=== PATIENT | female | born 1995 | race Caucasian/White ===

== ENCOUNTER 2020-03-11 13:57 | Emergency (ER) | payer OTHER ==
--- NOTE | 2020-03-11 14:48 | ER Document Report ---
ED Medical Screen (RME) - General Chief Complaint: Vag Bleeding, +preg <12wks Stated Complaint: VAGINAL BLEEDING Time Seen by Provider: 03/11/20 14:36 - HPI Notes: 03/11/20 14:47 25-year-old female to the emergency department with complaints of vaginal bleeding that began this morning. She states it started off a little bit heavier and now is gone to spotting. Has a little bit of intermittent lower abdominal cramping with this. She states that she is about 6 weeks . This is her first . She is not seen COMPANY ACCOUNTANT. She is not had an ultrasound. She has been taking prenatals. Denies any nausea or vomiting. Denies any fevers chills. Denies any chest pain, shortness of breath, lightheadedness, urinary complaints. I performed a brief medical screening exam on the patient determined that the patient needs further evaluation and management by main side provider. I have placed initial orders to help expedite care. - Related Data Allergies/Adverse Reactions: No Known Allergies Allergy (Unverified 03/11/20 14:46) Home Medications: vitamins Past Medical History - Social History Chew tobacco use (# tins/day): No Frequency of alcohol use: None Drug Abuse: None Physical Exam - Vital signs Vitals: Temp Pulse Resp BP Pulse Ox 99.0 F 83 18 129/73 H 99 03/11/20 14:05 03/11/20 14:05 03/11/20 14:05 03/11/20 14:05 03/11/20 14:05 Course - Vital Signs Vital signs: Temp Pulse Resp BP Pulse Ox 99.0 F 83 18 129/73 H 99 03/11/20 14:05 03/11/20 14:05 03/11/20 14:05 03/11/20 14:05 03/11/20 14:05
[2020-03-11 15:29] LABS: ABSOLUTE EOSINOPHILS # (AUTO) 0.1 10^3/uL (0.0-0.6); ABSOLUTE LYMPHOCYTES (AUTO) 1.6 10^3/uL (0.5-4.7); ABSOLUTE MONOCYTES (AUTO) 0.5 10^3/uL (0.1-1.4); ABSOLUTE NEUT (AUTO) 5.5 10^3/uL (1.7-8.2); BASOPHILS % (AUTO) 0.4 % (0-2); EOSINOPHILS % (AUTO) 1.4 % (0-6); HEMATOCRIT 39.5 % (36.0-47.0); HEMOGLOBIN 13.5 g/dL (12.0-15.5); LYMPHOCYTES % (AUTO) 20.8 % (13-45); MEAN CORPUSCULAR HEMOGLOBIN 28.1 pg (27.0-33.4); MEAN CORPUSCULAR HGB CONC 34.2 g/dL (32.0-36.0); MEAN CORPUSCULAR VOLUME 82 fl (80-97); MONOCYTES % (AUTO) 6.9 % (3-13); PLATELET COUNT 306 10^3/uL (150-450); RED CELL DISTRIBUTION WIDTH 13.5 % (11.5-14.0); SEGMENTED NEUTROPHILS % (AUTO) 70.5 % (42-78); TOTAL CELLS COUNTED % (AUTO) 100 %; WHITE BLOOD COUNT 7.7 10^3/uL (4.0-10.5)
[2020-03-11 15:54] LABS: ALBUMIN 4.2 g/dL (3.5-5.0); ALKALINE PHOSPHATASE 106 U/L (38-126); ANION GAP 9 (5-19); ASPARTATE AMINO TRANSFERASE 27 U/L (14-36); BILIRUBIN,DIRECT 0.3 mg/dL (0.0-0.4); BILIRUBIN,TOTAL 0.6 mg/dL (0.2-1.3); BLOOD UREA NITROGEN 11 mg/dL (7-20); CALCIUM 9.8 mg/dL (8.4-10.2); CARBON DIOXIDE 27 mmol/L (22-30); CHLORIDE 103 mmol/L (98-107); GLUCOSE 97 mg/dL (75-110); POTASSIUM 4.4 mmol/L (3.6-5.0)
--- NOTE | 2020-03-11 17:04 | RADIOLOGY REPORT (SQ) ---
EXAM DESCRIPTION: U/S OB TRANSVAG W/DOPPLER IMAGES COMPLETED DATE/TIME: 03/11/2020 4:38 pm REASON FOR STUDY: 6 weeks preg, vag bleeding, eval ectopic COMPARISON: None. TECHNIQUE: Transvaginal static and realtime grayscale images acquired of the pelvis. Additional margarito cted spectral and color Doppler images recorded. All images stored on PACs. CLINICAL AGE: 7 weeks, 1 day [id number],323 LIMITATIONS: None. FINDINGS: UTERUS: No masses. No anomalies. GESTATIONAL SAC: Normal shape. YOLK SAC: Yes. POLE: None present. RIGHT ADNEXA: Normal ovary with normal vascular flow. No adnexal free fluid. No adnexal masses. LEFT ADNEXA: Normal ovary with normal vascular flow. No adnexal free fluid. No adnexal masses. Incidental note is made of a corpus luteum cyst. FREE FLUID: None. OTHER: No other significant finding. IMPRESSION: POSSIBLE EARLY INTRAUTERINE . BHCG LEVEL APPROPRIATE FOR ENDOMETRIAL FINDINGS. CONSIDER F/U BHCG AND/OR ULTRASOUND FOR VERIFICATION AND TO EXCLUDE ECTOPIC . Trimester of : First trimester - 0 to 13 weeks. TECHNICAL DOCUMENTATION: JOB ID: [id number] 2010 [employer]- All Rights Reserved Reading location - IP/workstation name: [email or web address]
[2020-03-11 18:03] LABS: APPEARANCE,URINE CLEAR; BILIRUBIN,URINE NEGATIVE (NEGATIVE); COLOR,URINE YELLOW; GLUCOSE, URINE NEGATIVE (NEGATIVE); KETONES,URINE NEGATIVE (NEGATIVE); LEUKOCYTE ESTERASE,URINE NEGATIVE (NEGATIVE); NITRITE,URINE NEGATIVE (NEGATIVE); PROTEIN,URINE NEGATIVE (NEGATIVE); URINE SPECIFIC GRAVITY 1.013; UROBILINOGEN,URINE NEGATIVE mg/dL (<2.0)
--- NOTE | 2020-03-11 18:25 | ER Document Report ---
ED General - General Chief Complaint: Vag Bleeding, +preg <12wks Stated Complaint: VAGINAL BLEEDING Time Seen by Provider: 03/11/20 14:36 Primary Care Provider: ALYSE BALTAZAR MD [ACTIVE PROVISIONAL STAFF] - 03/13/20 - [facility] Notes: 25-year-old female, G1, P0 to the emergency department with complaints of vaginal bleeding that began today. She states it was heavy in the morning and now it slowed up to mild spotting. She states that she is about 6 weeks . She thinks her last menstrual period was in January. She admits some slight cramping. Denies any urinary complaints. Denies any vaginal discharge. She states she has not had a ultrasound to confirm location he had with this . She has been taking prenatals. She denies any nausea vomiting, diarrhea. - Related Data Allergies/Adverse Reactions: No Known Allergies Allergy (Unverified 03/11/20 14:46) Home Medications: vitamins Past Medical History - General Information source: Patient - Social History Smoking Status: Never Smoker Chew tobacco use (# tins/day): No Frequency of alcohol use: None Drug Abuse: None Family History: Reviewed & Not Pertinent Review of Systems - Review of Systems Constitutional: denies: Chills, Fever EENT: No symptoms reported Cardiovascular: denies: Chest pain, Palpitations, Dyspnea, Syncope Respiratory: denies: Cough, Short of breath Gastrointestinal: denies: Diarrhea, Nausea, Vomiting Genitourinary: denies: Burning, Frequency, Flank pain Female Genitourinary: See HPI, , Vaginal bleeding Musculoskeletal: No symptoms reported Skin: No symptoms reported Hematologic/Lymphatic: No symptoms reported Neurological/Psychological: No symptoms reported -: Yes All other systems reviewed and negative Physical Exam - Vital signs Vitals: Temp Pulse Resp BP Pulse Ox 99.0 F 83 18 129/73 H 99 03/11/20 14:05 03/11/20 14:05 03/11/20 14:05 03/11/20 14:05 03/11/20 14:05 Interpretation: Normal - General General appearance: Appears well, Alert - HEENT Head: Normocephalic, Atraumatic Eyes: Normal Pupils: PERRL - Respiratory Respiratory status: No respiratory distress Chest status: Nontender Breath sounds: Normal Chest palpation: Normal - Cardiovascular Rhythm: Regular Heart sounds: Normal auscultation Murmur: No - Abdominal Inspection: Normal Distension: No distension Bowel sounds: Normal Tenderness: Nontender. No: McBurney's point, Núñez's sign, Guarding, Rebound Organomegaly: No organomegaly - Back Back: Normal, Nontender. No: CVA tenderness - Neurological Neuro grossly intact: Yes Cognition: Normal Orientation: AAOx4 [place] Coma Scale Eye Opening: Spontaneous Peggy Coma Scale Verbal: Oriented Peggy Coma Scale Motor: Obeys Commands [place] Coma Scale Total: 15 Speech: Normal Motor strength normal: LUE, RUE, LLE, RLE Sensory: Normal - Psychological Associated symptoms: Normal affect, Normal mood - Skin Skin Temperature: Warm Skin Moisture: Dry Skin Color: Normal Course - Re-evaluation Re-evalutation: Impression: Threatened miscarriage in early . Noted ultrasound with possible early gestational sac but no heart tones or pole. Ectopic cannot be excluded and have advised patient of this. We will have her follow-up with me the in 48 hours for trending of beta quant. Advised she will need to have a repeat ultrasound in about 7 to 10 days. She is to return if she has any worsening symptoms such as worsening bleeding, abdominal pain, passing out, chest pain, shortness of breath. She agrees with the plan. I have advised pelvic rest until cleared by INSURANCE COMPLIANCE ANALYST. - Vital Signs Vital signs: Temp Pulse Resp BP Pulse Ox 98.7 F 69 18 123/72 100 03/11/20 18:41 03/11/20 18:41 03/11/20 18:41 03/11/20 18:41 03/11/20 18:41 - Laboratory Result Diagrams: 03/11/20 15:03 03/11/20 15:03 Laboratory results interpreted by me: 03/11/20 03/11/20 15:03 17:32 Beta HCG, Quant 5323.30 H Urine Blood SMALL H - Diagnostic Test Radiology reviewed: Image reviewed, Reports reviewed Discharge - Discharge Clinical Impression: Threatened miscarriage in early , Vaginal bleeding Pelvic pain affecting Qualifiers: Trimester: first trimester Qualified Code(s): O26.891 - Other specified related conditions, first trimester Condition: Stable Disposition: HOME, SELF-CARE Instructions: Bleeding During Early ([facility]), Rhogam ([facility]), Threatened Miscarriage ([facility]) Additional Instructions: Continue to use prenatals. Nothing in the vagina -- no douching, no sex, no tampons. Return if worsening pain, bleeding, passing out. Repeat Beta Quant ( hormone) in 48 hours. Your level was 5223. You got Rhogam today for your blood type. You will need a repeat US in 7-10 days. Referrals: ALYSE BALTAZAR MD [ACTIVE PROVISIONAL STAFF] - 03/13/20
[2020-03-11 18:30] VITALS: BP 123/72
== END 2020-03-11 18:42 | disposition home or self-care (01) ==
LOC: ER 13:57
DX: O20.0 Threatened abortion (principal); O26.891 Other specified pregnancy related conditions, first trimester; Z3A.01 Less than 8 weeks gestation of pregnancy
CPT/HCPCS: 99284; 86900; 86901; 36415; 86850; 84702; 85025; 80053; 81001; 76817; 93976; J2790

== ENCOUNTER 2020-03-19 02:54 | Emergency (ER) | payer OTHER ==
[2020-03-19] MEDS ORDERED: ACETAMINOPHEN 325 MG TABLET PO ONE (04:42)
--- NOTE | 2020-03-19 05:18 | ER Document Report ---
ED Medical Screen (RME) - General Chief Complaint: OB Problem (<20wks) Stated Complaint: VAGINAL BLEEDING Time Seen by Provider: 03/19/20 05:06 Mode of Arrival: Ambulatory Information source: Patient Notes: HPI; 25-year-old female 1 states she is approximately 7 weeks presents to the emergency room with a worsening bleeding and cramping that started earlier today. Patient states she also passed a big ball of clear fluid earlier tonight. Patient was seen here on March 11 ultrasound at that time showed a gestational sac and yolk sac but no pole and no heartbeat. Her quant at that time was 5323. Patient did follow-up with her CHAMPION OF SUSTAINABLE DESIGN at [facility] and has been having trending hemoglobins states her one on Tuesday of last week was around 4700. The one on Tuesday was around 5500. She was due to see her OB today with repeat hCG. Patient states her COTTON CHOPPER told her on Tuesday that most likely was not going to be a viable . Patient has not been taking anything for pain. Has appointment with her COTTON CHOPPER later on today. Denies any nausea, vomiting, no other concerns. Patient does have Rh- and was given RhoGam when she was here last week. PE: Alert and oriented x3. Mild distress noted. Lungs: Clear to auscultation without rales, rhonchi, wheezes. Heart: Regular rate rhythm without murmurs, rubs, gallops. I have greeted and performed a rapid initial assessment of this patient. A comprehensive ED assessment and evaluation of the patient, analysis of test results and completion of the medical decision making process will be conducted by additional ED providers. I have specifically instructed the patient or family members with the patient to immediately return to any nursing staff should anything change in the patient's condition or with their chief complaint. TRAVEL OUTSIDE OF THE [place] IN LAST 30 DAYS: No - Related Data Allergies/Adverse Reactions: No Known Allergies Allergy (Unverified 03/11/20 14:46) Home Medications: vitamins Past Medical History - Social History Chew tobacco use (# tins/day): No Physical Exam - Vital signs Vitals: Temp Pulse Resp BP Pulse Ox 98.7 F 69 16 130/67 H 100 03/19/20 03:57 03/19/20 03:57 03/19/20 03:57 03/19/20 03:57 03/19/20 03:57 Course - Vital Signs Vital signs: Temp Pulse Resp BP Pulse Ox 98.7 F 69 16 130/67 H 100 03/19/20 03:57 03/19/20 03:57 03/19/20 03:57 03/19/20 03:57 03/19/20 03:57
[2020-03-19 05:33] LABS: ABSOLUTE EOSINOPHILS # (AUTO) 0.1 10^3/uL (0.0-0.6); ABSOLUTE LYMPHOCYTES (AUTO) 1.1 10^3/uL (0.5-4.7); ABSOLUTE MONOCYTES (AUTO) 0.3 10^3/uL (0.1-1.4); ABSOLUTE NEUT (AUTO) 7.3 10^3/uL (1.7-8.2); BASOPHILS % (AUTO) 0.3 % (0-2); EOSINOPHILS % (AUTO) 0.7 % (0-6); HEMOGLOBIN 14.1 g/dL (12.0-15.5); LYMPHOCYTES % (AUTO) 12.7 % (13-45); MEAN CORPUSCULAR HEMOGLOBIN 28.3 pg (27.0-33.4); MEAN CORPUSCULAR HGB CONC 34.3 g/dL (32.0-36.0); MEAN CORPUSCULAR VOLUME 82 fl (80-97); MONOCYTES % (AUTO) 3.8 % (3-13); PLATELET COUNT 315 10^3/uL (150-450); RED BLOOD COUNT 4.98 10^6/uL (3.72-5.28); RED CELL DISTRIBUTION WIDTH 13.3 % (11.5-14.0); SEGMENTED NEUTROPHILS % (AUTO) 82.5 % (42-78); TOTAL CELLS COUNTED % (AUTO) 100 %; WHITE BLOOD COUNT 8.8 10^3/uL (4.0-10.5)
[2020-03-19 05:42] LABS: APPEARANCE,URINE CLEAR; BILIRUBIN,URINE NEGATIVE (NEGATIVE); COLOR,URINE STRAW; GLUCOSE, URINE NEGATIVE (NEGATIVE); KETONES,URINE NEGATIVE (NEGATIVE); LEUKOCYTE ESTERASE,URINE NEGATIVE (NEGATIVE); NITRITE,URINE NEGATIVE (NEGATIVE); PROTEIN,URINE NEGATIVE (NEGATIVE); URINE SPECIFIC GRAVITY 1.008; UROBILINOGEN,URINE NEGATIVE mg/dL (<2.0)
[2020-03-19 05:48] LABS: ALBUMIN 4.4 g/dL (3.5-5.0); ALKALINE PHOSPHATASE 117 U/L (38-126); ANION GAP 9 (5-19); ASPARTATE AMINO TRANSFERASE 24 U/L (14-36); BILIRUBIN,DIRECT 0.2 mg/dL (0.0-0.4); BILIRUBIN,TOTAL 0.5 mg/dL (0.2-1.3); BLOOD UREA NITROGEN 13 mg/dL (7-20); CALCIUM 9.7 mg/dL (8.4-10.2); CARBON DIOXIDE 26 mmol/L (22-30); CHLORIDE 100 mmol/L (98-107); GLUCOSE 107 mg/dL (75-110); POTASSIUM 4.5 mmol/L (3.6-5.0); TOTAL PROTEIN 7.3 g/dL (6.3-8.2)
--- NOTE | 2020-03-19 06:25 | RADIOLOGY REPORT (SQ) ---
COMPLETED DATE/TME: 03/19/2020 05:17 EXAM: Pelvic ultrasound. INDICATION: Bleeding, passing large clots. TECHNIQUE: Grayscale and Doppler sonogram of the pelvis. Transvaginal technique was used for better evaluation of the pelvic viscera. COMPARISON: 03/11/2020. FINDINGS: Uterus: Measures 8.5 x 3.7 x 4.6 cm. Endometrial stripe: Measures 2.1 cm with some vascularity. The previously seen intrauterine gestational sac with yolk sac is no longer visualized. Right ovary: Measures 2.8 x 1.8 x 2.0 cm. Normal doppler flow. Left ovary: Measures 3.1 x 1.5 x 2.0 cm. Normal doppler flow. Other: Free fluid: None. IMPRESSION: The previously seen intrauterine gestational sac with yolk sac is no longer visualized, likely due to a spontaneous .
[2020-03-19] MEDS ORDERED: NAPROXEN 250 MG TABLET PO ONE (09:41)
[2020-03-19] MEDS ORDERED: HYDROCODONE/ACETAMINOPHEN 5-325 MG TABLET PO ONE (09:41)
[2020-03-19 09:55] VITALS: BP 118/71
--- NOTE | 2020-03-19 13:31 | ER Document Report ---
Entered by RAAD STINSON SCRIBE 03/19/20 0920 Acting as scribe for:HARRISON KATZ MD ED GI/ - General Chief Complaint: OB Problem (<20wks) Stated Complaint: VAGINAL BLEEDING Time Seen by Provider: 03/19/20 05:06 Mode of Arrival: Ambulatory Information source: Patient Notes: This 25 year old female patient, G1, approximately x7 weeks presents to the ED today with complaints of vaginal bleeding with associated abdominal cramping that started prior to arrival. Patient sates that she has been passing blood clots for the past few days and possible passed products of conceptions this morning. Patient was seen here on 03/11 with the same complaint and had an obstetrics ultrasound done at that time that did show an early IUP; hCG was 5323 and she received RhoGam during that visit. She states that she did follow-up with her SUPERVISOR INSPECTING at [facility] since that visit and was told on 03/14 that it was most likely not going to be a viable . TRAVEL OUTSIDE OF THE [place] IN LAST 30 DAYS: No - Related Data Allergies/Adverse Reactions: No Known Allergies Allergy (Unverified 03/11/20 14:46) Home Medications: vitamins Past Medical History - General Information source: Patient - Social History Smoking Status: Never Smoker Cigarette use (# per day): No Chew tobacco use (# tins/day): No Smoking Education Provided: No Lives with: Spouse/Significant other Family History: Reviewed & Not Pertinent Patient has suicidal ideation: No Patient has homicidal ideation: No Review of Systems - Review of Systems Constitutional: No symptoms reported EENT: No symptoms reported Cardiovascular: No symptoms reported Respiratory: No symptoms reported Gastrointestinal: See HPI, Abdominal pain Genitourinary: No symptoms reported Female Genitourinary: See HPI, , Vaginal bleeding Musculoskeletal: No symptoms reported Skin: No symptoms reported Hematologic/Lymphatic: No symptoms reported Neurological/Psychological: No symptoms reported -: Yes All other systems reviewed and negative Physical Exam - Vital signs Vitals: Temp Pulse BP Pulse Ox 98.7 F 77 130/67 H 100 03/19/20 03:48 03/19/20 03:48 03/19/20 03:48 03/19/20 03:48 - General General appearance: Appears well, Alert In distress: None - HEENT Head: Normocephalic, Atraumatic Eyes: Normal Pupils: PERRL - Respiratory Respiratory status: No respiratory distress Chest status: Nontender Breath sounds: Normal Chest palpation: Normal - Cardiovascular Rhythm: Regular Heart sounds: Normal auscultation Murmur: No Friction rub: No Gallop: None auscultated - Abdominal Inspection: Normal Distension: No distension Bowel sounds: Normal Tenderness: Nontender - Abdomen soft Organomegaly: No organomegaly - Back Back: Normal, Nontender - Extremities General upper extremity: Normal inspection General lower extremity: Normal inspection. No: Edema - Neurological Neuro grossly intact: Yes Orientation: AAOx4 [place] Coma Scale Eye Opening: Spontaneous Peggy Coma Scale Verbal: Oriented Peggy Coma Scale Motor: Obeys Commands Peggy Coma Scale Total: 15 - Psychological Associated symptoms: Normal affect, Normal mood - Skin Skin Temperature: Warm Skin Moisture: Dry Skin Color: Normal Course - Vital Signs Vital signs: Temp Pulse Resp BP Pulse Ox 98.2 F 85 16 118/71 100 03/19/20 09:54 03/19/20 09:54 03/19/20 09:54 03/19/20 09:54 03/19/20 09:54 - Laboratory Result Diagrams: 03/19/20 05:05 03/19/20 05:05 Laboratory results interpreted by me: 03/19/20 03/19/20 03/19/20 05:05 05:05 05:05 Lymph % (Auto) 12.7 L Seg Neutrophils % 82.5 H Sodium 135.4 L Beta HCG, Quant 6087.90 H Urine Blood LARGE H Discharge - Discharge Clinical Impression: Complete miscarriage Condition: Stable Disposition: HOME, SELF-CARE Additional Instructions: Miscarriage You have had a miscarriage (medically called a "spontaneous "). The miscarriage occurred because the fetus did not develop normally. There is nothing you did to cause it, and nothing you could have done to prevent it. About one in four ends in miscarriage. You should rest in bed for two or three days. As there is some risk of infection of the uterus, you should not have intercourse for one week (or until okayed by your physician). You might not have a period for six to eight weeks. You should not become again for at least three months -- the uterus requires time to get back to normal. Call the doctor or return for re-examination if there is heavy or persistent vaginal bleeding, fever, foul discharge, continued cramping pains, or abdominal pain. I personally performed the services described in the documentation, reviewed and edited the documentation which was dictated to the scribe in my presence, and it accurately records my words and actions.
== END 2020-03-19 10:31 | disposition home or self-care (01) ==
LOC: ER 02:54
DX: O03.9 Complete or unspecified spontaneous abortion without complication (principal); Z3A.01 Less than 8 weeks gestation of pregnancy
CPT/HCPCS: 36415; 76817; 80053; 81001; 83690; 84702; 85025; 93976; 99284